=== PATIENT | female | born 1965 | race Caucasian/White ===

== ENCOUNTER 2016-08-16 00:53 | Emergency (ER) | payer BC ==
[2016-08-16 00:59] VITALS: RESP 18
[2016-08-16] MEDS ORDERED: MAGNESIUM CITRATE 296 ML BOTTLE PO ONE (01:42)
--- NOTE | 2016-08-16 01:52 | ED ---
Head Injury HPI - General Chief complaint: Head Injury Stated complaint: Fall-Head Lac Time Seen by Provider: 08/16/16 01:24 Source: patient, RN notes reviewed Mode of arrival: ambulatory Limitations: no limitations - History of Present Illness Initial comments: Patient is a 51-year-old female with chief complaint of a fall and they have laceration. Patient reports that she was standing on the edge of her bed and was extremely tired and fell asleep while standing up. Patient reports that she fell asleep she became loss of balance and fell and hit her head on the back of the dresser. Patient reports that she has no loss of consciousness after the injury. She denies any vomiting. Patient reports that she does take a baby aspirin today. Patient denies any other symptoms related to the fall or prior to the fall including dizziness or shortness of breath or chest pain. She denies any recent fever or chills. She denies any changes in vision or dizziness. Patient reports that her main symptom at this time is a pain from her head laceration. Patient reports that tetanus is up-to-date. - Related Data Allergies/Adverse reactions: Allergies Allergy/AdvReac Type Severity Reaction Status Date / Time Penicillins Allergy Intermediate Rash/Hives Verified 08/16/16 01:00 sulfadiazine Allergy Intermediate Rash/Hives Verified 08/16/16 01:00 Review of Systems ROS Statement: Those systems with pertinent positive or pertinent negative responses have been documented in the HPI. ROS Other: All systems not noted in ROS Statement are negative. Past Medical History Past Medical History: No Reported History History of Any Multi-Drug Resistant Organisms: None Reported Past Surgical History: Cholecystectomy, Hysterectomy Past Psychological History: No Psychological Hx Reported Smoking Status: Never smoker Past Alcohol Use History: None Reported Past Drug Use History: None Reported General Exam - General Exam Comments Initial Comments: Linares is a pleasant 51-year-old female. She is on appear to be in any acute distress. Limitations: no limitations General appearance: alert, in no apparent distress Head exam: Present: atraumatic, normocephalic. Absent: normal inspection ( Evidence of a 3 cm laceration over the posterior scalp.) Eye exam: Present: normal appearance, PERRL, EOMI. Absent: scleral icterus, conjunctival injection, periorbital swelling ENT exam: Present: normal exam, mucous membranes moist, TM's normal bilaterally Neck exam: Present: normal inspection. Absent: tenderness, meningismus, lymphadenopathy Respiratory exam: Present: normal lung sounds bilaterally. Absent: respiratory distress, wheezes, rales, rhonchi, stridor Cardiovascular Exam: Present: regular rate, normal rhythm, normal heart sounds. Absent: systolic murmur, diastolic murmur, rubs, gallop, clicks GI/Abdominal exam: Present: soft, normal bowel sounds. Absent: distended, tenderness, guarding, rebound, rigid Extremities exam: Present: normal inspection, full ROM, normal capillary refill. Absent: tenderness, pedal edema, joint swelling, calf tenderness Back exam: Present: normal inspection Neurological exam: Present: alert, oriented X3, CN II-XII intact Expanded Patient oriented to: Present: person, place, time Speech: Present: fluid speech Cranial nerves: EOM's Intact: Normal, Gag Reflex: Normal, Tongue Deviation: Normal, Facial Sensation: Normal Cerebellar function: Finger to Nose: Normal Upper motor neuron: Ancelmo Neglect: Normal Sensory exam: Upper Extremity Light Touch: Normal, Lower Extremity Light Touch: Normal Motor strength exam: RUE: 5, LUE: 5, RLE: 5, LLE: 5 Eye Response: (4) open spontaneously Motor Response: (6) obeys commands Verbal Response: (5) oriented [place] Total: 15 Psychiatric exam: Present: normal affect, normal mood Skin exam: Present: warm, dry, intact, normal color. Absent: rash Course Vital Signs 08/16/16 08/16/16 00:57 02:52 Temperature 98 F 97.6 F Pulse Rate 81 71 Respiratory 18 18 Rate Blood Pressure 147/68 139/63 O2 Sat by Pulse 98 98 Oximetry Procedures - Laceration Laceration #1 Indication: laceration Site: scalp (Left posterior occipital lobe) Size (cm): 3 Description: linear Depth: simple, single layer Anesthetic Used: benzocaine 0.25% Anesthesia Technique: local infiltration Amount (mls): 5 Pre-repair: wound explored, irrigated extensively Type of Sutures: other (Staple) Number of Sutures: 3 Patient Tolerated Procedure: well, no complications Medical Decision Making - Medical Decision Making Patient is a alert and oriented 51-year-old female with chief complaint of head laceration after fall and on her dresser. Patient reports that she fell trying to get back into bed and she felt very tired and lost her balance. Patient reports no chest pain shortness of breath or dizziness at this time. She denies any changes in vision. CT brain shows evidence of small cephalohematoma scalp swelling the left occipital area. No definite depressed skull fracture. No intracranial hemorrhage, mass effect or should've the scene. There is evidence of mild atrophy changes for patient's age. Patient was given 3 rose mary in the wound was cleaned. Patient reports she is up-to-date on her tetanus.patient has been advised to follow up with primary care instructed on head injury instructions. She'll return in 10 days to have the sutures removed and instructed to monitor for infection. Patient understands treatment plan will comply. Return parameters were discussed. - Radiology Data Radiology results: report reviewed CT brain shows small cephalohematoma scalp swelling to the left occipital area. No definite depressed skull fracture. No acute intracranial hemorrhage, mass effect or midline shift seen. Mild atrophy changes of the brain for patient's age. Disposition Clinical Impression: Head injury, acute, without loss of consciousness, Scalp laceration Disposition: HOME SELF-CARE Condition: Good Instructions: Concussion (ED), Head Injury (ED), Staple Care (ED) Additional Instructions: Please return to the emergency room in 8-10 days to have rose mary removed. Please use clean soap and water to clean the suture area to prevent scabbing over the top of your sutures. Please watch for any signs of infection which may include but not limited to increased pain, swelling, redness, fever or chills. Please return to the emergency room if any signs of infection do occur. Please return to the emergency room for any other concerns or complications. Patient advised to be monitored at all times in the next 24-48 hours for head injury instruction precautions. Turning the EC at once if any alarming signs or symptoms occur. Referrals: Mario Carter MD [Primary Care Provider] - 1-2 days Time of Disposition: 02:40
--- NOTE | 2016-08-16 02:21 | CT ---
EXAMINATION TYPE: CT brain wo con DATE OF EXAM: 08/16/2016 1:46 AM COMPARISON: NONE HISTORY: fall, head injury, no LOC, laceration to occipital region CT DLP: 1012.70 mGycm Automated exposure control for dose reduction was used. FINDINGS: Scalp laceration and soft tissue swelling is suggested in the left occipital area with small cephaloh ematoma. No definite depressed skull fracture is noted. Small 3 mm osteoma is suggested in the ethmoi d sinuses. There is no acute intracranial hemorrhage, mass effect, or midline shift identified. The cortical sul ci are slightly prominent especially posteriorly with mild atrophic changes. Ventricles are also slig htly prominent in size.. Mild periventricular white matter ischemic changes are suggested bilaterally more prominent posteriorly. Mild atrophic changes are suggested in the cerebellum. Right eye globe calcification is noted in the retina area. Left eye globe appears unremarkable. No evidence of sinusitis. IMPRESSION: Small cephalohematoma scalp swelling in the left occipital area. No definite depressed skull fracture . No acute intracranial hemorrhage, mass effect, or midline shift is seen. Mild atrophic changes of brain for patient's age.
[2016-08-16 02:53] VITALS: BP 139/63; PULSE 71; TEMP 97.6
== END 2016-08-16 02:59 | disposition home or self-care (01) ==
LOC: EC 00:53
DX: S01.01XA Laceration without foreign body of scalp, initial encounter (principal); S09.90XA Unspecified injury of head, initial encounter; W06.XXXA Fall from bed, initial encounter; W22.8XXA Striking against or struck by other objects, initial encounter; Z88.0 Allergy status to penicillin; Z88.2 Allergy status to sulfonamides
CPT/HCPCS: 12002; 70450; 99283

== ENCOUNTER → 2016-11-12 | Outpatient (CLI) | payer BC ==
--- NOTE | 2016-11-12 23:13 | MR ---
EXAMINATION TYPE: MR cspine/lspine wo con DATE OF EXAM: 11/12/2016 8:34 PM COMPARISON: NONE HISTORY: 51-year-old female spondylosis without myelopathy, headaches, neck pain, low back pain. TECHNIQUE: Multiplanar, multisequence images of the cervical followed by the lumbar spine were obtain ed without IV contrast. FINDINGS: CERVICAL SPINE: Partially empty sella incidentally noted. No craniocervical junction abnormality, predental space widening, or prevertebral soft tissue swellin g. There is normal alignment of the cervical spine with straightening of the mid cervical lordosis. Intervertebral discs are degenerated, desiccated, and bulging with disc osteophyte complex prominent at C6-C7. Additional very mild ligamentum flavum thickening at various levels and facet/uncovertebral joint deg enerative change. No suspicious bone marrow replacement. At C2-C3, there is minimal posterior disc bulge without significant canal or foraminal stenosis. At C3-C4, minimal posterior disc bulge and facet/uncovertebral joint degenerative change. Changes res ult in minimal narrowing of the bilateral neuroforamina without spinal canal stenosis. At C4-C5, there is mild facet arthropathy without significant canal stenosis. Minimal facet in near f oraminal narrowing. At C5-C6, mild facet degenerative change and mild ligamentum flavum thickening without significant ca nal or foraminal stenosis. At C6-C7, there is lobulated disc osteophyte complex with contiguous uncovertebral joint arthropathy. Additional left greater than right facet degenerative change. This results in [id number] left and minimal right neuroforaminal narrowing. There is also ventral impression onto the thecal sac with a ventral cord abutment but no significant spinal canal stenosis or cord compression. At C7-T1, mild facet degenerative change without significant canal or foraminal stenosis. Normal course, caliber, and signal intensity of the cervical cord. No prevertebral or paravertebral soft tissue abnormality seen. LUMBAR SPINE: Vertebral body heights are preserved and alignment is maintained. No suspicious bone marrow replacement. Some fatty Modic type II endplate changes seen anteriorly at T 11-T12 and L3-L4. Conus medullaris is normal. There is variable mild disc desiccation throughout and disc bulging. Minimal disc interspace narrowin g at L3-L4. Additional hypertrophic facet arthropathy mid to lower lumbar spine. At T11-T12, there is slight diffuse disc bulge. This minimally impresses on the ventral thecal sac wi thout significant spinal canal or foraminal stenosis. At T12-L1, no significant spinal canal or neuroforaminal stenosis. At L1-L2, minimal bulging disc without significant canal or foraminal stenosis. At L2-L3, mild facet degenerative change without significant canal or foraminal stenosis. At L3-L4, there is diffuse disc bulge, ligamentum flavum thickening, and facet degenerative change. T his results in minimal bilateral neuroforaminal narrowing without significant spinal canal stenosis. Disc material closely approaches and may abut the traversing left L4 nerve root. Sagittal image 5. At L4-L5, facet degenerative change and minimal disc bulging. No significant spinal canal or neurofor aminal stenosis. At L5-S1, there is facet degenerative change without significant canal or foraminal stenosis. No prevertebral or paravertebral soft tissue abnormality seen. COMBINED IMPRESSION: CERVICAL SPINE: 1. Moderate multilevel degenerative disc disease. Additional scattered facet and uncovertebral joint arthropathy. 2. Changes are greatest at C6-C7 where there is lobulated disc osteophyte complex impressing onto the thecal sac and abutting the ventral cord. However, this does not cause significant spinal canal sten osis or any cord flattening. 3. Mild to moderate left and minimal right neuroforaminal stenosis at this level. 4. Additional levels of minimal neuroforaminal narrowing as above. LUMBAR SPINE: 1. Mild multilevel degenerative disc disease. Additional hypertrophic facet arthropathy mid to lower lumbar spine. 2. No vertebral compression collapse or malalignment. 3. Degenerative changes are greatest at L3-L4 with diffuse disc bulge minimally narrowing the bilater al neuroforamina but closely approaching and possibly abutting the traversing left L4 nerve root at t his level. 4. There is no biju canal or foraminal compromise.
== END | disposition home or self-care (01) ==
LOC: RADMRIMAIN 18:47
PROVIDERS: ATTEND Psychiatry & Neurology Neurology
DX: M99.71 Connective tissue and disc stenosis of intervertebral foramina of cervical region (principal); M50.30 Other cervical disc degeneration, unspecified cervical region; M46.92 Unspecified inflammatory spondylopathy, cervical region; M99.73 Connective tissue and disc stenosis of intervertebral foramina of lumbar region; M51.26 Other intervertebral disc displacement, lumbar region; M51.36 Other intervertebral disc degeneration, lumbar region; M47.816 Spondylosis without myelopathy or radiculopathy, lumbar region; M46.96 Unspecified inflammatory spondylopathy, lumbar region
CPT/HCPCS: 72141; 72148

== ENCOUNTER → 2016-11-27 | Outpatient (CLI) | payer BC ==
--- NOTE | 2016-11-27 19:07 | PN ---
DATE OF SERVICE: 11/27/2016 51-year-old lady who has been followed in the sleep center to discuss results of home sleep study and following plan. Patient presented with symptoms of significant excessive daytime sleepiness. [place] Sleepiness Scale today is 15. She has history of sleepiness while driving, especially before. Presently, she lost about 30 pounds of weight and she feels a little bit better. We discussed results of home sleep apnea test, which showed that the patient had totally 40 apneas including central and 121 hypopneas with oxygen desaturation to 84%. MEDICATIONS: 1. L-Thyroxine. 2. Simvastatin. 3. Omeprazole. 4. ( ). 5. Aspirin. 6. Primipaxole. 7. Trazodone. During physical exam, the patient in no distress. VITAL SIGNS: BP 169/65, HR 88, RR 16. Oxygen saturation at room air 100%, temperature 98.8. Height 5 feet 1 inch. Weight 210. BMI 39.6. HEENT: PERRLA, EOMI oropharynx low position of soft palate. Neck: Supple. No JVD. Thyroid is not palpable. LUNGS: Clear to percussion and to auscultation. Good air exchange. No wheezing or rhonchi. HEART: S1, S2 regular. No murmurs, gallops, or rubs. ABDOMEN: Obese. Soft and nontender. Bowel sounds are present. No organomegaly appreciated. EXTREMITIES: No clubbing or cyanosis. INTERFACE ENGINEER: Awake, alert, and oriented x3. Cranial nerves 2 to 7 intact. There is no fasciculation or atrophy noted. No focal deficits observed. IMPRESSION: 1. Moderate obstructive sleep apnea-hypopnea syndrome. Apnea-hypopnea index 25.4 with oxygen desaturation to 84%. 2. Obesity. 3. History of restless leg syndrome. 4. History of mononucleosis with Gina-Corona virus infection. 5. Hyperlipidemia. 6. Hypothyroidism. 7. Depression. PLAN: 1. CPAP titration for correction of respiratory abnormalities during sleep. 2. Sleep hygiene with regular time in bed for at least 8 hours. 3. No driving if feeling any sleepiness. 4. I will see the patient for follow-up visit after she receives her CPAP equipment to check compliance with treatment and clinical response on treatment. 5. If she will continues to have sleepiness while she is still on treatment with CPAP, we will consider additional evaluation for hypersomnia. Thank you very much for allowing me to participate in the management of your patient. Sincerely, Kaleb Clark MD, PhD, FAASM. Diplomat of [place] [employer], Sleep Medicine Board by [place] [employer] [place] [employer] Web Methods Developer of [facility]
== END | disposition home or self-care (01) ==
LOC: SLEEP 15:01
PROVIDERS: ATTEND Internal Medicine
DX: G47.33 Obstructive sleep apnea (adult) (pediatric) (principal); E66.9 Obesity, unspecified; Z68.39 Body mass index [BMI] 39.0-39.9, adult; E78.5 Hyperlipidemia, unspecified; E03.9 Hypothyroidism, unspecified; Z79.899 Other long term (current) drug therapy; F32.9 Major depressive disorder, single episode, unspecified

== ENCOUNTER → 2017-08-03 | Outpatient (CLI) | payer BC ==
--- NOTE | 2017-08-05 06:47 | MM ---
Reason for exam: screening (asymptomatic). Last mammogram was performed 1 year and 3 months ago. History: Patient is postmenopausal. Benign excisional biopsy of the right breast. Took estrogen for 2 years beginning at age 43. Physical Findings: A clinical breast exam by your physician is recommended on an annual basis and results should be correlated with mammographic findings. MG Screening Mammo w CAD Bilateral CC and MLO view(s) were taken. Prior study comparison: April 21, 2016, bilateral MG screening mammo w CAD. June 07, 2014, bilateral MG screening mammo w CAD. March 29, 2013, bilateral digital screening mammo w/CAD. There are scattered fibroglandular densities. No suspicious abnormality. No significant changes when compared with prior studies. ASSESSMENT: Negative, BI-RAD 1 RECOMMENDATION: Routine screening mammogram of both breasts in 1 year.
== END | disposition home or self-care (01) ==
LOC: RADMAMWWP 16:22
PROVIDERS: ATTEND Internal Medicine
DX: Z12.31 Encounter for screening mammogram for malignant neoplasm of breast (principal)
CPT/HCPCS: 77067

== ENCOUNTER → 2019-01-06 | Outpatient (CLI) | payer BC ==
--- NOTE | 2019-01-07 09:55 | MM ---
Reason for exam: screening (asymptomatic). Last mammogram was performed 1 year and 5 months ago. History: Patient is postmenopausal. Benign excisional biopsy of the right breast. Took estrogen for 2 years beginning at age 43. Physical Findings: A clinical breast exam by your physician is recommended on an annual basis and results should be correlated with mammographic findings. MG Screening Mammo w CAD Bilateral CC and MLO view(s) were taken. Prior study comparison: August 03, 2017, bilateral MG screening mammo w CAD. April 21, 2016, bilateral MG screening mammo w CAD. There are scattered fibroglandular densities. Stable benign calcifications. There is no discrete abnormality. No significant changes when compared with prior studies. ASSESSMENT: Benign, BI-RAD 2 RECOMMENDATION: Routine screening mammogram of both breasts in 1 year.
== END | disposition home or self-care (01) ==
LOC: RADMAMWWP 16:12
PROVIDERS: ATTEND Internal Medicine
DX: Z12.31 Encounter for screening mammogram for malignant neoplasm of breast (principal)
CPT/HCPCS: 77067

== ENCOUNTER → 2020-10-31 | Outpatient (CLI) | payer BC | END | disposition home or self-care (01) | LOC: LABWHC1 16:24 | PROVIDERS: ATTEND Internal Medicine | DX: U07.1 COVID-19 (principal) | CPT/HCPCS: U0003; C9803; U0005 ==

== ENCOUNTER → 2021-06-26 | Outpatient (CLI) | payer BC ==
--- NOTE | 2021-06-28 11:55 | MM ---
Reason for exam: screening (asymptomatic). Last mammogram was performed 2 years and 6 months ago. History: Patient is postmenopausal. Benign excisional biopsy of the right breast. Took estrogen for 2 years beginning at age 43. Physical Findings: A clinical breast exam by your physician is recommended on an annual basis and results should be correlated with mammographic findings. MG Screening Mammo w CAD Bilateral CC and MLO view(s) were taken. Prior study comparison: January 06, 2019, bilateral MG screening mammo w CAD. August 03, 2017, bilateral MG screening mammo w CAD. The breast tissue is almost entirely fat. No significant changes when compared with prior studies. ASSESSMENT: Negative, BI-RAD 1 RECOMMENDATION: Routine screening mammogram of both breasts in 1 year.
== END | disposition home or self-care (01) ==
LOC: RADMAMWWP 12:55
PROVIDERS: ATTEND Internal Medicine
DX: Z12.31 Encounter for screening mammogram for malignant neoplasm of breast (principal); Z78.0 Asymptomatic menopausal state
CPT/HCPCS: 77067

== ENCOUNTER → 2021-12-05 | Outpatient (CLI) | payer BC ==
--- NOTE | 2021-12-06 13:37 | CA ---
Stress Echo Report Carmen Ward Age: 56 Gender: F : 1965 Exam Date: 12/05/2021 10:39 Exam Location: [place] [facility] Ht (in): 62 Wt (lb): 190 Ordering Physician: Luis Miguel Roberts MD Referring Physician: ,, Bricklayer Paving Brick: Sherlyn Savage RDCS Technologist Procedure CPT: Indication: R94.31 ICD-9 Codes: Rhythm: Patient History: Htn, CVA Cardiac Medications: Medications in past 24 hours: Contrast: Stress Results Protocol: Jignesh Total dose(mL): Exercise Duration (min:sec): Max ST Depression (mm): Angina Score: Hendrickson Score: METS: 6.7 Resting HR: 64 Resting BP: 109 / 49 Peak HR: 135 Peak BP: / 54 Max Predicted HR: 162 83 % Max Predicted HR Target HR: 138 Double Product: Stress Summary: BP Response: Reason for Termination: Pt was SoB Cardiac Symptoms: No symptoms ECG Analysis Resting ECG: Stress ECG: Arrhythmia: Echo Analysis Resting Echo: Peak Echo Analysis: MEASUREMENTS (Male/Female) Normal Values CONCLUSIONS Excellent exercise tolerance Normal EKG in response to exercise Normal echocardiogram in response to exercise Dr. Humza Blevins MD (Electronically Signed) Final Date: 06 Dec 2021 13:36
== END | disposition home or self-care (01) ==
LOC: RADNMMAIN 10:08
PROVIDERS: ATTEND Internal Medicine
DX: R94.31 Abnormal electrocardiogram [ECG] [EKG] (principal)
CPT/HCPCS: 93351

== ENCOUNTER 2023-01-06 07:36 | Day surgery (SDC) | payer BC ==
[~2023-01-06 07:36] MED LIST: LACTATED RINGERS 1,000 ML IV SCH; LIDOCAINE 1% (10MG/ML) FOR IV START INTRADERMA PRN
[2023-01-06 07:58] VITALS: RESP 16; TEMP 97
[2023-01-06] MEDS ORDERED: PROPOFOL 10 MG/ML 20 ML VIAL IV ONE (08:34)
[2023-01-06] MEDS ORDERED: LIDOCAINE 2% INJ 20 MG/ML (2 ML VIAL) ONE (08:34)
--- NOTE | 2023-01-06 08:37 | P.GSHP ---
History of Present Illness H&P Date: 01/06/23 Chief Complaint: GERD, screening 57-year-old female here today for upper and lower endoscopy. Patient with history of colon polyps. No bowel complaints. No family history of colon cancer. Patient with history of chronic reflux. Symptoms controlled with omeprazole. Past Medical History Past Medical History: GERD/Reflux, Hyperlipidemia, Hypertension, Thyroid Disorder History of Any Multi-Drug Resistant Organisms: None Reported Past Surgical History: Cholecystectomy, Hysterectomy, Orthopedic Surgery Additional Past Surgical History / Comment(s): charmaine hands finger surgery lft index finger re attached, rt hand pinning, lft knee arthrosocpy Past Anesthesia/Blood Transfusion Reactions: No Reported Reaction Smoking Status: Never smoker - Past Family History Mother Family Medical History: Cancer Additional Family Medical History / Comment(s): lung Father Family Medical History: Cancer Additional Family Medical History / Comment(s): pancreatic Medications and Allergies Home Medications Medication Instructions Recorded Confirmed Type Cholestyramine (with Sugar) 4 gm PO BID 01/02/23 01/02/23 History [Cholestyramine Packet] Levothyroxine Sodium 137 mcg PO DAILY 01/02/23 01/02/23 History Omeprazole 20 mg PO DAILY 01/02/23 01/02/23 History Pramipexole Di-HCl [Pramipexole 2 mg PO HS 01/02/23 01/02/23 History Dihydrochloride] Tolterodine Tartrate [Tolterodine 4 mg PO DAILY 01/02/23 01/06/23 History Tartrate ER] atenoloL 25 mg PO HS 01/02/23 01/06/23 History Allergies Allergy/AdvReac Type Severity Reaction Status Date / Time Penicillins Allergy Intermediate Rash/Hives Verified 01/06/23 07:49 sulfadiazine Allergy Intermediate Rash/Hives Verified 01/06/23 07:49 Surgical - Exam Vital Signs Temp Pulse Resp BP Pulse Ox 97.0 F L 66 16 152/69 98 01/06/23 07:57 01/06/23 07:57 01/06/23 07:57 01/06/23 07:57 01/06/23 07:57 Physical exam: General: Well-developed, well-nourished HEENT: Normocephalic, sclerae nonicteric Abdomen: Nontender, nondistended Extremities: No edema Neuro: Alert and oriented Assessment and Plan (1) Colon cancer screening Narrative/Plan: Will proceed with upper and lower endoscopy. Current Visit: Yes Status: Acute Code(s): Z12.11 - ENCOUNTER FOR SCREENING FOR MALIGNANT NEOPLASM OF COLON SNOMED Code(s): 880560901
--- NOTE | 2023-01-06 08:59 | P.PCN ---
Date of Procedure: 01/06/23 Procedure(s) Performed: PREOPERATIVE DIAGNOSIS: GERD, screening, history of polyps POSTOPERATIVE DIAGNOSIS: Mild gastritis, small gastric polyps, small hiatal hernia, ascending colon polyp PROCEDURE: 1. EGD with biopsy 2. Colonoscopy with biopsy ANESTHES[place]: [facility] [place] SURGEON: Dylan Henriquez M.D. SPECIMENS: Antrum, gastric polyp, ascending colon polyp ENDOSCOPIC PROCEDURE: The patient was on the endoscopy table in the left decubitus position. The Olympus gastroscope was inserted into the oropharynx and passed under direct visualization to the region of the third portion of the duodenum. From that point the scope was slowly withdrawn inspecting all surfaces carefully. There were no neoplastic inflammatory or polypoid lesions throughout the duodenum. The pylorus was widely patent. The stomach was carefully inspected. There was mild gastritis present. A biopsy of the antrum took place to rule out H. pylori. The patient had multiple small less than 1 cm gastric polyps. The largest was biopsied using the cold biopsy forceps. Retroflexion revealed a small sliding hiatal hernia. The GE junction was present 1 cm above the diaphragmatic hiatus. The esophagus was then carefully examined. There were no neoplastic inflammatory or polypoid lesions throughout the visualized esophagus. The patient was kept on the endoscopy table in the left decubitus position. The Olympus colonoscope was inserted into the anus and passed under direct visualization to the base of the cecum. The appendiceal orifice was visualized. From that point the scope was slowly withdrawn inspecting all surfaces carefully. There were no neoplastic inflammatory or polypoid lesions throughout the cecum. In the ascending colon a small polyp was seen and removed using the cold biopsy forceps. The remainder of the transverse descending sigmoid and rectum appeared normal. There was no visible diverticulosis. Digital rectal examination was normal. The patient was taken to the recovery room in stable condition per anesthesia guidelines. RECOMMENDATIONS: Await biopsy results. Continue antiacid therapy. Repeat upper and lower endoscopy 5 to 7 years.
[2023-01-06 09:23] VITALS: BP 140/78; PULSE 63
== END 2023-01-06 09:45 | disposition home or self-care (01) ==
LOC: ORWHC2ENDO 07:36
PROVIDERS: ATTEND Surgery
DX: Z12.11 Encounter for screening for malignant neoplasm of colon (principal); K63.5 Polyp of colon; K29.50 Unspecified chronic gastritis without bleeding; K31.7 Polyp of stomach and duodenum; K21.9 Gastro-esophageal reflux disease without esophagitis; K44.9 Diaphragmatic hernia without obstruction or gangrene; I10 Essential (primary) hypertension; E78.5 Hyperlipidemia, unspecified; E07.9 Disorder of thyroid, unspecified; Z79.890 Hormone replacement therapy; Z79.899 Other long term (current) drug therapy; Z88.0 Allergy status to penicillin; Z88.8 Allergy status to other drugs, medicaments and biological substances; Z90.49 Acquired absence of other specified parts of digestive tract; Z80.8 Family history of malignant neoplasm of other organs or systems
CPT/HCPCS: 88305; 45380; 43239; J2704; J2001

== ENCOUNTER → 2023-04-22 | Outpatient (CLI) | payer BC ==
--- NOTE | 2023-04-23 09:23 | US ---
EXAMINATION TYPE: US kidneys/renal and bladder DATE OF EXAM: 04/22/2023 COMPARISON: NONE CLINICAL INDICATION: Female, 57 years old with history of N32.81 OVERACTIVE BLADDER; Overactive bladd er. EXAM MEASUREMENTS: Right Kidney: 11.2 x 5.9 x 4.3 cm Left Kidney: 12.2 x 5.2 x 5.1 cm Right Kidney: No hydronephrosis or masses seen Left Kidney: Anechoic area seen lower pole: 2.3 x 2.6 x 2.2 cm. Bladder: Appears wnl Bilateral Jets seen: Yes IMPRESSION: Cyst lower pole left kidney. No solid renal masses detected.
== END | disposition home or self-care (01) ==
LOC: RADUSWWP 15:35
PROVIDERS: ATTEND Internal Medicine
DX: N32.81 Overactive bladder (principal); N28.1 Cyst of kidney, acquired
CPT/HCPCS: 76770

== ENCOUNTER → 2023-07-07 | Outpatient (CLI) | payer BC ==
--- NOTE | 2023-07-07 17:51 | BD ---
EXAMINATION TYPE: Axial Bone Density DATE OF EXAM: 07/07/2023 CLINICAL HISTORY: 58 years old Female. ICD-10 CODE: Z78.0 OSTEOPOR SCREEN Height: 60 Weight: 192.7 FRAX RISK QUESTIONS: Alcohol (3 or more units per day): no Family History (Parent hip fracture): no Glucocorticoids (More than 3mos): no (Ex: prednisone, prednisolone, methylprednisolone, dexamethasone, and hydrocortisone). History of Fracture in Adulthood: no Secondary Osteoporosis: 1. Type 1 Diabetes: no 2. Hyperthyroidism: no 3. Menopause before 45: yes 4. Malnutrition: no 5. Chronic liver disease: no Rheumatoid Arthritis: no Current Tobacco Use: no RISK FACTORS HISTORY OF: Surgery to Spine/Hip(right/left)/Wrist (right/left): no MEDICATIONS: Thyroid Medications: synthroid How Lon years EXAM MEASUREMENTS: Bone mineral densitometry was performed using the [employer] System. Bone mineral density as measured about the Lumbar spine is: ----- L1-L4(G/cm2): 1.262 T Score Values are as follows: ----- L1: 0.6 ----- L2: 0.7 ----- L3: 0.6 ----- L4: 0.7 ----- L1-L4: 0.7 Z Score Values are as follows: ----- L1: 1.1 ----- L2: 1.2 ----- L3: 1.0 ----- L4: 1.2 ----- L1-L4: 1.1 Bone mineral density has: decreased -7.3 % since study of: 07.08.2013 Bone mineral density about the R hip (g/cm2): 1.103 Bone mineral density about the L hip (g/cm2): 1.178 T Score values are as follows: -----R Neck: 0.2 -----L Neck: 0.1 -----R Total: 0.8 -----L Total: 1.3 Z Score values are as follows: -----R Neck: 0.9 -----L Neck: 0.9 -----R Total: 1.1 -----L Total: 1.7 Bone mineral density has: decreased -15.1 % since study of: 07.08.2013 FRAX%s: The graph provided illustrates a 5.5 % chance for a major osteoporotic fx and a 0.1% chance f or the hips probability for fx in 10 years time. IMPRESSION: Normal (Values between +1 and -1 indicate normal bone mass). Consider repeating this study in 5 year s or sooner if there is some new clinical indication. NOTE: T-SCORE=SD OF THE YOUNG ADULT MEAN.
== END | disposition home or self-care (01) ==
LOC: RADBDWWP 08:45
PROVIDERS: ATTEND Internal Medicine
DX: Z13.820 Encounter for screening for osteoporosis (principal); Z78.0 Asymptomatic menopausal state
CPT/HCPCS: 77080

== ENCOUNTER → 2023-12-28 | Outpatient (CLI) | payer BC ==
--- NOTE | 2023-12-28 13:39 | CT ---
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 Unenhanced followed by contrast enhanced CT o f the orbits was performed. CONTRAST: Performed with IV Contrast, patient injected with 100 mL of Isovue 300. FINDINGS: The globes are symmetric bilaterally. There is no evidence for proptosis. Within the peripheral right lobe superiorly there is focal calcification or foreign body measuring 5 mm seen best on image 21 of 34. The left globe is free of calcification or foreign body. No evidence for intra or extraconal mas s. Optic nerves are symmetric. The extraocular musculature appear within normal limits. No enhancing mass lesion is seen. IMPRESSION: 1.Within the peripheral right lobe superiorly there is focal calcification or foreign body measuring 5 mm seen best on image 21 of 34. The left globe is free of calcification or foreign body.
== END | disposition home or self-care (01) ==
LOC: RADCTMAIN 11:12
PROVIDERS: ATTEND Ophthalmology
DX: H47.332 Pseudopapilledema of optic disc, left eye (principal); G44.219 Episodic tension-type headache, not intractable
CPT/HCPCS: 70482; Q9967